=== PATIENT | male | born 1940 | race Caucasian/White ===

== ENCOUNTER 2020-01-04 14:40 | Inpatient (IN) | payer MEDICARE ==
[2020-01-04] MEDS ORDERED: fentaNYL (PF) 50 MCG/ML 2 ML AMP IVP STA (14:45)
[2020-01-04] MEDS ORDERED: DILTIAZEM 125 MG in SODIUM CHLORIDE 0.9% 100 ML IV SCH (14:45)
[2020-01-04] MEDS ORDERED: SODIUM CHLORIDE 0.9% 500 ML 500 ML IV STA (14:45)
[2020-01-04] MEDS ORDERED: SODIUM CHLORIDE 0.9% 1,000 ML IV STA ×2 (14:45)
[2020-01-04] MEDS ORDERED: ADENOSINE 3 MG/ML 2 ML VIAL IVP STA (14:45)
--- NOTE | 2020-01-04 14:46 | ED ---
Arrhythmia/Palpitations HPI - General Chief Complaint: Arrhythmia/Palpitations Stated Complaint: Tachycardia Time Seen by Provider: 01/04/20 14:45 Source: patient, EMS Mode of arrival: EMS Limitations: altered mental status - Related Data Allergies Allergy/AdvReac Type Severity Reaction Status Date / Time No Known Allergies Allergy Verified 01/04/20 14:48 Review of Systems ROS Statement: Those systems with pertinent positive or pertinent negative responses have been documented in the HPI. ROS Other: All systems not noted in ROS Statement are negative. Past Medical History Past Medical History: No Reported History History of Any Multi-Drug Resistant Organisms: None Reported Past Surgical History: No Surgical Hx Reported Smoking Status: Never smoker Past Alcohol Use History: None Reported Past Drug Use History: None Reported General Exam Limitations: altered mental status Course Vital Signs 01/04/20 01/04/20 01/04/20 14:41 14:48 14:55 Temperature 97.9 F Pulse Rate 247 H 236 H 232 H Respiratory 19 16 16 Rate Blood Pressure 128/104 111/97 66/52 O2 Sat by Pulse 95 95 Oximetry 01/04/20 01/04/20 01/04/20 14:58 15:08 15:11 Temperature Pulse Rate 235 H 231 H 67 Respiratory 18 16 18 Rate Blood Pressure 91/51 84/62 98/85 O2 Sat by Pulse 95 Oximetry 01/04/20 15:20 Temperature Pulse Rate 67 Respiratory 18 Rate Blood Pressure 125/73 O2 Sat by Pulse 95 Oximetry EKG Findings - EKG Comments: EKG Findings:: EKG shows ventricular tachycardia 247 QRS 144 QTC 458. Repeat after spontaneous cardioversion. EKG shows occasional paced of 78 RI 272 QRS 152 QTC 481 Medical Decision Making - Lab Data Result diagrams: 01/04/20 14:50 01/04/20 14:50 Lab Results 01/04/20 01/04/20 01/04/20 Range/Units 14:50 14:50 14:50 WBC 15.8 H (3.8-10.6) k/uL RBC 5.01 (4.30-5.90) m/uL Hgb 14.5 (13.0-17.5) gm/dL Hct 44.9 (39.0-53.0) % MCV 89.5 (80.0-100.0) fL MCH 28.9 (25.0-35.0) pg MCHC 32.3 (31.0-37.0) g/dL RDW 13.0 (11.5-15.5) % Plt Count 195 (150-450) k/uL Neutrophils % 80 % Lymphocytes % 11 % Monocytes % 7 % Eosinophils % 0 % Basophils % 0 % Neutrophils # 12.6 H (1.3-7.7) k/uL Lymphocytes # 1.8 (1.0-4.8) k/uL Monocytes # 1.1 H (0-1.0) k/uL Eosinophils # 0.0 (0-0.7) k/uL Basophils # 0.1 (0-0.2) k/uL PT 11.4 (9.0-12.0) sec INR 1.1 (<1.2) APTT 22.0 (22.0-30.0) sec Sodium 142 (137-145) mmol/L Potassium 4.8 (3.5-5.1) mmol/L Chloride 111 H (98-107) mmol/L Carbon Dioxide 19 L (22-30) mmol/L Anion Gap 12 mmol/L BUN 37 H (9-20) mg/dL Creatinine 1.54 H (0.66-1.25) mg/dL Est GFR (CKD-EPI)AfAm 49 (>60 ml/min/1.73 sqM) Est GFR (CKD-EPI)NonAf 42 (>60 ml/min/1.73 sqM) Glucose 190 H (74-99) mg/dL POC Glucose (mg/dL) (75-99) mg/dL POC Glu Firing Pin Gauger ID Plasma Lactic Acid Thaddeus (0.7-2.0) mmol/L Calcium 9.2 (8.4-10.2) mg/dL Phosphorus 4.5 (2.5-4.5) mg/dL Magnesium 2.1 (1.6-2.3) mg/dL Total Bilirubin 1.4 H (0.2-1.3) mg/dL AST 122 H (17-59) U/L ALT 95 H (4-49) U/L Alkaline Phosphatase 60 (38-126) U/L Creatine Kinase 640 H (55-170) U/L Troponin I (0.000-0.034) ng/mL Total Protein 6.5 (6.3-8.2) g/dL Albumin 4.1 (3.5-5.0) g/dL TSH 1.840 (0.465-4.680) mIU/L 01/04/20 01/04/20 01/04/20 Range/Units 14:50 14:50 14:53 WBC (3.8-10.6) k/uL RBC (4.30-5.90) m/uL Hgb (13.0-17.5) gm/dL Hct (39.0-53.0) % MCV (80.0-100.0) fL MCH (25.0-35.0) pg MCHC (31.0-37.0) g/dL RDW (11.5-15.5) % Plt Count (150-450) k/uL Neutrophils % % Lymphocytes % % Monocytes % % Eosinophils % % Basophils % % Neutrophils # (1.3-7.7) k/uL Lymphocytes # (1.0-4.8) k/uL Monocytes # (0-1.0) k/uL Eosinophils # (0-0.7) k/uL Basophils # (0-0.2) k/uL PT (9.0-12.0) sec INR (<1.2) APTT (22.0-30.0) sec Sodium (137-145) mmol/L Potassium (3.5-5.1) mmol/L Chloride (98-107) mmol/L Carbon Dioxide (22-30) mmol/L Anion Gap mmol/L BUN (9-20) mg/dL Creatinine (0.66-1.25) mg/dL Est GFR (CKD-EPI)AfAm (>60 ml/min/1.73 sqM) Est GFR (CKD-EPI)NonAf (>60 ml/min/1.73 sqM) Glucose (74-99) mg/dL POC Glucose (mg/dL) 204 H (75-99) mg/dL POC Glu Firing Pin Gauger ID Svacha, II, David Plasma Lactic Acid Thaddeus 4.5 H* (0.7-2.0) mmol/L Calcium (8.4-10.2) mg/dL Phosphorus (2.5-4.5) mg/dL Magnesium (1.6-2.3) mg/dL Total Bilirubin (0.2-1.3) mg/dL AST (17-59) U/L ALT (4-49) U/L Alkaline Phosphatase (38-126) U/L Creatine Kinase (55-170) U/L Troponin I <0.012 (0.000-0.034) ng/mL Total Protein (6.3-8.2) g/dL Albumin (3.5-5.0) g/dL TSH (0.465-4.680) mIU/L Disposition Clinical Impression: Tachycardia, Palpitations, Ventricular tachycardia Disposition: ADMITTED IP TO THIS HOSP Condition: Serious Is patient prescribed a controlled substance at d/c from ED?: No Referrals: None,Stated [Primary Care Provider] - 1-2 days
[2020-01-04] MEDS ORDERED: METOPROLOL TARTRATE 5 MG/5 ML VIAL IVP STA (14:47)
[2020-01-04] MEDS ORDERED: DEXTROSE 5% IN WATER 100 ML with AMIODARONE 150 MG IV ONE (14:49)
[2020-01-04 14:55] LABS: Glucose,Whole Blood 204 mg/dL (75-99)
[2020-01-04 14:59] LABS: Basophils # (A) 0.1 k/uL (0-0.2); Basophils % (A) 0 %; Eosinophils % (A) 0 %; HCT 44.9 % (39.0-53.0); HGB 14.5 gm/dL (13.0-17.5); Lymphocytes # (A) 1.8 k/uL (1.0-4.8); Lymphocytes % (A) 11 %; MCH 28.9 pg (25.0-35.0); MCHC 32.3 g/dL (31.0-37.0); MCV 89.5 fL (80.0-100.0); Mean Platelet Volume 8.5; Monocytes # (A) 1.1 k/uL (0-1.0); Monocytes % (A) 7 %; Neutrophils # (A) 12.6 k/uL (1.3-7.7); Neutrophils % (A) 80 %; Platelet Count 195 k/uL (150-450); RBC 5.01 m/uL (4.30-5.90); WBC 15.8 k/uL (3.8-10.6)
[2020-01-04 15:09] LABS: Albumin 4.1 g/dL (3.5-5.0); Calcium 9.2 mg/dL (8.4-10.2); Magnesium 2.1 mg/dL (1.6-2.3); Phosphorus 4.5 mg/dL (2.5-4.5); Potassium 4.8 mmol/L (3.5-5.1); Total Bilirubin 1.4 mg/dL (0.2-1.3); Total Protein 6.5 g/dL (6.3-8.2)
[2020-01-04 15:13] LABS: INR 1.1 (<1.2); Prothrombin Time 11.4 sec (9.0-12.0)
[2020-01-04] MEDS ORDERED: AMIODARONE 360 MG in DEXTROSE 5% IN WATER 200 ML IV ONE ×2 (15:14)
[2020-01-04] MEDS ORDERED: NITROGLYCERIN SL TABS 0.4 MG TAB SUBLINGUAL PRN (15:56)
[2020-01-04] MEDS ORDERED: MORPHINE SULFATE 4 MG/ML SYRINGE IV PRN (15:56)
--- NOTE | 2020-01-04 15:57 | XR ---
EXAMINATION TYPE: XR chest 1V portable DATE OF EXAM: 01/04/2020 COMPARISON: NONE HISTORY: This TECHNIQUE: Single frontal view of the chest is obtained. FINDINGS: There is no focal air space opacity, pleural effusion, or pneumothorax seen. The cardiac silhouette size is within normal limits. The osseous structures are intact. Left-sided cardiac shane ce. Arthropathy of the shoulders. Heart size normal. IMPRESSION: No acute process.
[2020-01-04] MEDS: SODIUM CHLORIDE 0.9% 1,000 ML IV SCH (16:42)
[2020-01-04] MEDS ORDERED: LORazepam 1 MG TAB PO PRN (18:37)
[2020-01-04] MEDS ORDERED: HYDROcodone/APAP 5-325MG 1 EACH TAB PO PRN (18:37)
--- NOTE | 2020-01-04 19:51 | US ---
EXAMINATION TYPE: US carotid duplex BILAT DATE OF EXAM: 01/04/2020 COMPARISON: NONE CLINICAL HISTORY: stroke. confusion, weakness EXAM MEASUREMENTS: RIGHT: Peak Systolic Velocity (PSV) cm/sec ----- Right CCA: 65.1 ----- Right ICA: 74.7 ----- Right ECA: 127.0 ICA/CCA ratio: 1.1 RIGHT: End Diastole cm/sec ----- Right CCA: 11.0 ----- Right ICA: 18.0 ----- Right ECA: 15.5 LEFT: Peak Systolic Velocity (PSV) cm/sec ----- Left CCA: 59.8 ----- Left ICA: 100.4 ----- Left ECA: 88.8 ICA/CCA ratio: 1.7 LEFT: End Diastole cm/sec ----- Left CCA: 11.0 ----- Left ICA: 28.0 ----- Left ECA: 11.1 VERTEBRALS (direction of flow): Right Vertebral: Antegrade Left Vertebral: Antegrade Rhythm: Normal Mild homogeneous plaque with no significant stenosis seen IMPRESSION: There is antegrade flow in the vertebral arteries. The images and measurements suggest l ess than 15% stenosis in both internal carotid arteries. Criteria for Assigning % of Stenosis / Diameter reduction (Estimation based on the indirect measurements of the internal carotid artery velocities (ICA PSV). 1. Normal (no stenosis)=ICA PSV < 125 cm/s: ratio < 2.0: ICA EDV<40 cm/s. 2. Less than 50% stenosis=ICA PSV < 125 cm/s: ratio < 2.0: ICA EDV<40 cm/s. 3. 50 to 69% stenosis=ICA PSV of 125 to 230 cm/s: ration 2.0 ? 4.0: ICA EDV 40-100 cm/s. 4. Greater than 70% stenosis to near occlusion= ICA PSV > 230 cm/s: ratio > 4.0: ICA EDV > 100 cm/s. 5. Near occlusion= ICA PSV velocities may be low or undetectable: variable ratio and ICA EDV. 6. Total occlusion=unable to detect flow.
--- NOTE | 2020-01-04 20:47 | HP ---
HISTORY AND PHYSICAL CHIEF COMPLAINTS: Change in mental status and ventricular tachycardia. HISTORY OF PRESENT ILLNESS: This 79-year-old gentleman with a past medical history of multiple medical problems, including hyperlipidemia, hypertension, history of dementia, history of possible cardiac arrhythmia, being followed by Dr. Delgado in the [place] area, apparently left home in a 3-neff. The patient apparently was planning to go to the [facility], but then the patient lost his way and was found in [place]. The patient was confused and the patient was seen by the EMT, who found that the patient was in ventricular tachycardia. The patient was taken to [facility]. Amiodarone drip was given and the patient converted to sinus tachycardia. The patient was admitted for further evaluation and treatment. Currently the patient is confused and unable to give a coherent history. The patient has significant dementia, though. There is no history of any fever, rigor or chills. No history of any other trauma at this time. PAST MEDICAL HISTORY: History of hypertension, hyperlipidemia, history of cardiac arrhythmia possibly, history of dementia. MEDICATIONS: 1. Pravachol 20 mg at bedtime. 2. Multivitamins 1 p.o. daily. 3. Vitamin D3 2000 daily. 4. Ecotrin 81 mg daily. 5. K-Dur 10 mEq p.o. daily. 6. Lopressor 25 mg b.i.d. 7. Namenda 10 mg p.o. b.i.d. 8. Eliquis 5 mg p.o. b.i.d. 9. Norvasc 10 mg p.o. daily. 10.Aricept 5 mg p.o. daily. ALLERGIES: NONE. FAMILY HISTORY: No history of heart disease or strokes in the family. SOCIAL HISTORY: No history of smoking. No history of alcohol intake. REVIEW OF SYSTEMS: ENT: No diminished hearing. No diminished vision. CARDIOVASCULAR SYSTEM: No angina, palpitations. RESPIRATORY SYSTEM: As mentioned earlier. GI: No nausea, vomiting. : No dysuria or retention. NERVOUS SYSTEM: No numbness, weakness. ALLERGY/IMMUNOLOGY: No asthma, hayfever. MUSCULOSKELETAL: As mentioned earlier. HEMATOLOGY/ONCOLOGY: No history of anemia. ENDOCRINE: No history of diabetes, hypothyroidism. CONSTITUTIONAL: As mentioned earlier. DERMATOLOGY: Negative. RHEUMATOLOGY: Negative. PSYCHIATRY: As mentioned earlier. PHYSICAL EXAMINATION: Patient alert and oriented x3. Pulse is 67, blood pressure 124/73, respiration 18, temperature normal, pulse ox 94% on 4 L. HEENT: Conjunctivae normal. Oral mucosa moist. NECK: No jugular venous distention. No carotid bruit. No lymph node enlargement. CARDIOVASCULAR SYSTEM: S1, S2 irregular. Tachycardia. RESPIRATORY SYSTEM: Breath sounds diminished at the bases. No rhonchi. No crackles. ABDOMEN: Soft, non-tender. LEGS: No edema. No swelling. NERVOUS SYSTEM: Higher functions as mentioned earlier. Moves all 4 limbs. No focal motor or sensory deficit. LYMPHATICS: No lymph node palpable in neck, axillae or groin. SKIN: No ulcer, rash, bleeding. JOINTS: No active deforming arthropathy. LABS: Labs at this time show WBC 15.8 and creatinine is 1.54. The previous creatinine value is not known. Lactic acid 4.5. Total bilirubin is 1.4, AST is 122, ALT is 95. Creatine kinase 640. ASSESSMENT: 1. Change in mental status, metabolic encephalopathy, acute on chronic, multifactorial. 2. Ventricular tachycardia, present on admission. Rule out acute coronary syndrome. 3. History of cardiac arrhythmia. 4. Increased creatinine with possible chronic kidney disease and acute on chronic renal failure. 5. Elevated plasma lactic acid, possibly secondary to dehydration. Rule out sepsis. 6. Elevated bilirubin and AST, ALT with mild hepatitis. 7. Elevated creatinine kinase with mild rhabdomyolysis. 8. Increased white count. 9. Hypertension. 10.Hyperlipidemia. 11.History of dementia. RECOMMENDATIONS AND DISCUSSION: In this 79-year-old gentleman who presented with multiple complex medical issues, we will monitor the patient closely, continue the current medications, continue with symptomatic treatment. Will initiate the home medications. IV fluids cautiously. Repeat labs. Cardiology consultation. I would also recommend a CT scan of the brain. The EKG revealed ventricular tachycardia initially which was rather monomorphic, and the EKG after admission showed normal sinus rhythm with possibly prolonged NJ interval with wide-complex QRS complexes which appears to be paced at this time. Overall prognosis is extremely guarded because of multiple complex medical conditions. Further recommendations to follow. There is no evidence of an infection at this time. The chest x-ray was reviewed personally by me and showed no acute process. I would recommend UA with micro and continue to follow up. Discussed with the patient's son and the daughter, who understand and agree. Further recommendations to follow. MMODL / IJN: [id number] /
--- NOTE | 2020-01-04 21:41 | CT ---
EXAMINATION TYPE: CT brain wo con DATE OF EXAM: 01/04/2020 COMPARISON: None HISTORY: Dementia CT DLP: 1123.4 mGycm Automated exposure control for dose reduction was used. There is moderate diffuse cerebral atrophy. There is no mass effect nor midline shift. There is no si gn of intracranial hemorrhage. There is some enlargement of the ventricles. The calvarium is intact. Skull base is intact. IMPRESSION: Cerebral atrophy. No acute intracranial abnormality.
[2020-01-04] MEDS: AMIODARONE 300 MG in DEXTROSE 5% IN WATER 250 ML IV SCH ×2 (22:01)
[2020-01-04] MEDS: APIXABAN 5 MG TAB PO SCH (22:03)
[2020-01-04] MEDS: PRAVASTATIN SODIUM 20 MG TAB PO SCH (22:03)
[2020-01-04] MEDS: METOPROLOL TARTRATE 25 MG TAB PO SCH (22:03)
[2020-01-04] MEDS: MEMANTINE 10 MG TAB PO SCH (22:03)
[2020-01-05] MEDS: SODIUM CHLORIDE 0.9% 1,000 ML IV SCH ×3 (02:19→21:01)
[2020-01-05 05:29] LABS: Appearance,Urine Clear (Clear); Bilirubin,Urine Negative (Negative); Blood,Urine Negative (Negative); Color,Urine Yellow; Glucose,Urine (UA) Negative (Negative); Ketones,Urine Trace (Negative); Leukocyte Esterase,Urine Negative (Negative); Nitrite,Urine Negative (Negative); Protein,Urine Trace (Negative); Specific Gravity,Urine 1.022 (1.001-1.035); Urobilinogen,Urine <2.0 mg/dL (<2.0)
[2020-01-05 05:39] LABS: Amphetamine Screen,Urine Not Detected (NotDetected); Barbiturate Screen,Urine Not Detected (NotDetected); Benzodiazepines Screen,Urine Not Detected (NotDetected); Cocaine Screen,Urine Not Detected (NotDetected); Methadone Screen, Urine Not Detected (NotDetected); Opiate Screen,Urine Not Detected (NotDetected); Oxycodone Screen, Urine Not Detected (NotDetected); Phencyclidine Screen,Urine Not Detected (NotDetected); Tricyclic Antidepressant,Urine Not Detected (NotDetected); Urn Cannabinoid Scrn Not Detected (NotDetected)
[2020-01-05] MEDS: PANTOPRAZOLE 40 MG TABLET PO SCH (06:41)
[2020-01-05 07:17] LABS: Basophils % (A) 0 %; Eosinophils % (A) 0 %; HGB 12.5 gm/dL (13.0-17.5); Lymphocytes # (A) 1.3 k/uL (1.0-4.8); Lymphocytes % (A) 16 %; MCH 29.8 pg (25.0-35.0); MCHC 32.9 g/dL (31.0-37.0); MCV 90.6 fL (80.0-100.0); Mean Platelet Volume 9.1; Monocytes # (A) 0.6 k/uL (0-1.0); Monocytes % (A) 7 %; Neutrophils # (A) 6.2 k/uL (1.3-7.7); Neutrophils % (A) 76 %; Platelet Count 139 k/uL (150-450); RBC 4.19 m/uL (4.30-5.90); RDW 12.9 % (11.5-15.5); WBC 8.2 k/uL (3.8-10.6)
[2020-01-05 07:30] LABS: Calcium 8.8 mg/dL (8.4-10.2); Potassium 4.6 mmol/L (3.5-5.1)
--- NOTE | 2020-01-05 08:59 | P.CRDCN ---
History of Present Illness Consult date: 01/05/20 Chief complaint: Change in mental status History of present illness: This is a 79-year-old gentleman with very advanced dementia we consulted to see for further evaluation off cardiac arrhythmia. The patient does have history of coronary artery disease as well as permanent pacemaker as well as hypertension and arrhythmia as well as advanced dementia. He was brought to the hospital by ambulance where he was found to be in monomorphic ventricular tachycardia and subsequently converted on his own in the emergency department. The patient is a very poor historian. He does not recall having any symptoms of chest pain or chest discomfort or shortness of breath or dizziness or syncope. He was found confused at [facility] where he was on his way to the [place]. After the patient was converted to normal sinus mechanism he was started on amiodarone IV. Since then he has been maintaining normal sinus mechanism. The initial EKG showed monomorphic ventricular tachycardia which was very fast. Subsequent EKG showed normal atrial sensed ventricular paced rhythm. The troponin is slightly elevated. He underwent a brain computed tomography scan which showed only chronic changes with atrophy without any acute abnormalities. Carotid duplex study also was performed and came in to be unremarkable. Past Medical History Past Medical History: Atrial Fibrillation, Cancer, Dementia, Eye Disorder, Hearing Disorder / Deafness, Hypertension, Memory Impairment, Prostate Disorder Additional Past Medical History / Comment(s): pacemaker, hx melanoma 20 years ago History of Any Multi-Drug Resistant Organisms: None Reported Past Surgical History: No Surgical Hx Reported, Heart Catheterization With Stent, Prostate Surgery, Tonsillectomy Additional Past Surgical History / Comment(s): stent right side of heart-dr monitoring left side Past Anesthesia/Blood Transfusion Reactions: No Reported Reaction Date of Last Stent Placement:: 6-7 years ago Smoking Status: Never smoker Past Alcohol Use History: None Reported Past Drug Use History: None Reported - Past Family History Father Family Medical History: Cancer Additional Family Medical History / Comment(s): of lung cancer Mother Family Medical History: Myocardial Infarction ([place]) Additional Family Medical History / Comment(s): from [place] Medications and Allergies Home Medications Medication Instructions Recorded Confirmed Type Apixaban [Eliquis] 5 mg PO BID 01/04/20 01/04/20 History Aspirin EC [Ecotrin Low Dose] 81 mg PO DAILY 01/04/20 01/04/20 History Cholecalciferol [Vitamin D3 (25 2,000 unit PO DAILY 01/04/20 01/04/20 History Mcg = 1000 Iu)] Donepezil HCl [Aricept] 5 mg PO DAILY 01/04/20 01/04/20 History Memantine [Namenda] 10 mg PO BID 01/04/20 01/04/20 History Metoprolol Tartrate [Lopressor] 25 mg PO BID 01/04/20 01/04/20 History Multivitamins, Thera [Multivitamin 1 tab PO DAILY 01/04/20 01/04/20 History (formulary)] Potassium Chloride ER [K-Dur 10] 10 meq PO DAILY 01/04/20 01/04/20 History Pravastatin Sodium [Pravachol] 20 mg PO HS 01/04/20 01/04/20 History amLODIPine [Norvasc] 10 mg PO DAILY 01/04/20 01/04/20 History Allergies Allergy/AdvReac Type Severity Reaction Status Date / Time No Known Allergies Allergy Verified 01/04/20 16:00 Physical Exam Vitals: Vital Signs Temp Pulse Pulse Resp BP BP Pulse Ox 01/05/20 04:00 60 19 125/60 95 01/05/20 00:00 98.2 F 60 18 116/66 96 01/04/20 20:00 98.1 F 63 18 146/67 98 01/04/20 17:48 66 18 131/76 96 01/04/20 16:46 97.7 F 70 70 18 124/70 158/63 96 01/04/20 15:20 67 18 125/73 95 01/04/20 15:11 67 18 98/85 01/04/20 15:08 231 H 16 84/62 95 01/04/20 14:58 235 H 18 91/51 01/04/20 14:55 232 H 16 66/52 01/04/20 14:48 236 H 16 111/97 95 01/04/20 14:41 97.9 F 247 H 19 128/104 95 Intake and Output 01/04/20 01/05/20 01/05/20 22:59 06:59 14:59 Intake Total 480 Output Total 400 300 Balance 80 -300 Intake: Oral 480 Output: Urine 400 300 Other: Voiding Method Toilet Toilet # Voids 1 3 Weight 82.871 kg 82 kg - Constitutional General appearance: no acute distress - Respiratory Respiratory: bilateral: diminished - Cardiovascular Rhythm: regular Heart sounds: normal: S1, S2 Results 01/05/20 06:26 01/05/20 06:26 Cardiac Enzymes 01/04/20 01/04/20 01/04/20 Range/Units 14:50 14:50 18:33 AST 122 H (17-59) U/L Troponin I <0.012 0.249 H* (0.000-0.034) ng/mL 01/04/20 Range/Units 22:14 AST (17-59) U/L Troponin I 0.624 H* (0.000-0.034) ng/mL Coagulation 01/04/20 Range/Units 14:50 PT 11.4 (9.0-12.0) sec APTT 22.0 (22.0-30.0) sec Lipids 01/05/20 Range/Units 06:26 Triglycerides 37 (<150) mg/dL Cholesterol 118 (<200) mg/dL HDL Cholesterol 39 L (40-60) mg/dL CBC 01/04/20 01/05/20 Range/Units 14:50 06:26 WBC 15.8 H 8.2 (3.8-10.6) k/uL RBC 5.01 4.19 L (4.30-5.90) m/uL Hgb 14.5 12.5 L (13.0-17.5) gm/dL Hct 44.9 38.0 L (39.0-53.0) % Plt Count 195 139 L (150-450) k/uL Comprehensive Metabolic Panel 01/04/20 01/05/20 Range/Units 14:50 06:26 Sodium 142 141 (137-145) mmol/L Potassium 4.8 4.6 (3.5-5.1) mmol/L Chloride 111 H 111 H (98-107) mmol/L Carbon Dioxide 19 L 27 (22-30) mmol/L BUN 37 H 31 H (9-20) mg/dL Creatinine 1.54 H 1.11 (0.66-1.25) mg/dL Glucose 190 H 106 H (74-99) mg/dL Calcium 9.2 8.8 (8.4-10.2) mg/dL AST 122 H (17-59) U/L ALT 95 H (4-49) U/L Alkaline Phosphatase 60 (38-126) U/L Total Protein 6.5 (6.3-8.2) g/dL Albumin 4.1 (3.5-5.0) g/dL Current Medications Generic Name Dose Route Start Last Admin Trade Name Freq PRN Reason Stop Dose Admin Hydrocodone Bitart/Acetaminophen 1 each 01/04/20 18:37 [place] 5-325 PO Q6HR PRN Pain Amlodipine Besylate 10 mg 01/05/20 09:00 Norvasc PO DAILY [facility] Apixaban 5 mg 01/04/20 21:00 01/04/20 22:03 Eliquis PO 5 mg BID HALI Administration Aspirin 325 mg 01/05/20 09:00 Aspirin PO DAILY [facility] Aspirin 81 mg 01/05/20 09:00 Aspirin PO DAILY [facility] Cholecalciferol 2,000 unit 01/05/20 09:00 Vitamin D3 (25 Mcg = 1000 Iu) PO DAILY [facility] Donepezil HCl 5 mg 01/05/20 09:00 Aricept PO DAILY [facility] Amiodarone HCl 300 mg/ 250 mls @ 25 mls/hr 01/04/20 21:15 01/04/20 22:01 Dextrose/Water IV 01/05/20 15:14 0.5 mg/min .Q10H HALI 25 mls/hr Administration Protocol 0.5 MG/MIN Sodium Chloride 1,000 mls @ 100 mls/hr 01/04/20 16:00 01/05/20 02:19 Saline 0.9% IV 100 mls/hr .Q10H HALI Administration Lorazepam 0.5 mg 01/04/20 18:37 Ativan PO Q8HR PRN Anxiety Memantine 10 mg 01/04/20 21:00 01/04/20 22:03 Namenda PO 10 mg BID HALI Administration Metoprolol Tartrate 25 mg 01/04/20 21:00 01/04/20 22:03 Lopressor PO 25 mg BID HALI Administration Morphine Sulfate 4 mg 01/04/20 15:56 Morphine Sulfate (Inj) IV Q4HR PRN Chest Pain Multivitamins 1 each 01/05/20 09:00 Theragran PO DAILY [facility] Nitroglycerin 0.4 mg 01/04/20 15:56 Nitrostat SUBLINGUAL Q5M PRN Chest Pain Pantoprazole Sodium 40 mg 01/05/20 07:30 01/05/20 06:41 Protonix PO 40 mg [id number] HALI Administration Potassium Chloride 10 meq 01/05/20 09:00 K-Dur 10 PO DAILY [facility]I Pravastatin Sodium 20 mg 01/04/20 21:00 01/04/20 22:03 Pravachol PO 20 mg HS HALI Administration Intake and Output 01/04/20 01/05/20 01/05/20 22:59 06:59 14:59 Intake Total 480 Output Total 400 300 Balance 80 -300 Intake: Oral 480 Output: Urine 400 300 Other: Voiding Method Toilet Toilet # Voids 1 3 Weight 82.871 kg 82 kg 01/05/20 06:26 01/05/20 06:26 Assessment and Plan Assessment: Assessment #1 change in mental status #2 ventricular tachycardia #3 history of permanent pacemaker #4 history of coronary artery disease #5 multiple comorbid conditions Plan #1 DC amiodarone IV and start the patient on amiodarone by mouth #2 obtain an echocardiogram was Doppler #3 monitor electrolytes including magnesium #4 interrogated the device #5 follow-up with the patient Thank you for allowing us participate in his care
[2020-01-05] MEDS: POTASSIUM CHLORIDE ER 10 MEQ TAB.ER.PRT PO SCH (09:43)
[2020-01-05] MEDS: amLODIPine 10 MG TAB PO SCH (09:43)
[2020-01-05] MEDS: APIXABAN 5 MG TAB PO SCH ×2 (09:43→21:06)
[2020-01-05] MEDS: ASPIRIN 325 MG TAB PO SCH (09:43)
[2020-01-05] MEDS: CHOLECALCIFEROL 1,000 UNIT TAB PO SCH (09:43)
[2020-01-05] MEDS: MEMANTINE 10 MG TAB PO SCH ×2 (09:43→21:05)
[2020-01-05] MEDS: DONEPEZIL 5 MG TAB PO SCH (09:44)
[2020-01-05] MEDS: METOPROLOL TARTRATE 25 MG TAB PO SCH ×2 (09:44→21:05)
[2020-01-05] MEDS: MULTIVITAMINS, THERA 1 EACH TAB PO SCH (09:44)
[2020-01-05] MEDS: ASPIRIN 81 MG PO SCH (09:44)
[2020-01-05] MEDS: AMIODARONE 300 MG in DEXTROSE 5% IN WATER 250 ML IV SCH ×2 (09:49)
[2020-01-05] MEDS: AMIODARONE 200 MG TAB PO SCH ×2 (10:35→21:06)
[2020-01-05 11:13] VITALS: BMI 24.5
[2020-01-05] MEDS: PRAVASTATIN SODIUM 20 MG TAB PO SCH (21:05)
--- NOTE | 2020-01-06 00:25 | P.PN ---
Subjective Progress Note Date: 01/05/20 Principal diagnosis: Ventricular tachycardia Mr. Berger is a 79-year-old male with advanced dementia, atrial fibrillation, hypertension, prostate disorder, history of melanoma 20 years back, pacemaker in place was brought in confused by EMS. The patient was confused and was found to be in ventricular tachycardia. Patient was started on amiodarone drip and converted into sinus rhythm. Patient has dementia and was not able to give much history. On reviewing the patient's vitals from this morning he has been afebrile, blood pressure 115/53, saturating at 96% on room air. Patient denies having any chest pain or palpitations. No cough or difficulty in breathing. No fever chills or rigors. No dysuria or hematuria. No abdominal pain nausea vomiting or diarr hea. Patient is wondering if he could go home today. On reviewing the patient's labs from this morning white count of 8.2, hemoglobin 12.5, platelets 139. Electrolytes within normal and patient's creatinine trending down from 1.54 to 1.11. Active Medications Hydrocodone Bitart/Acetaminophen ([place] 5-325) 1 each PO Q6HR PRN PRN Reason: Pain Amiodarone HCl (Cordarone) 400 mg PO BID [facility] Last Admin: 01/05/20 21:06 Dose: 400 mg Documented by: Amlodipine Besylate (Norvasc) 10 mg PO DAILY [facility] Last Admin: 01/05/20 09:43 Dose: 10 mg Documented by: Apixaban (Eliquis) 5 mg PO BID [facility] Last Admin: 01/05/20 21:06 Dose: 5 mg Documented by: Aspirin (Aspirin) 325 mg PO DAILY [facility] Last Admin: 01/05/20 09:43 Dose: 325 mg Documented by: Aspirin (Aspirin) 81 mg PO DAILY [facility] Last Admin: 01/05/20 09:44 Dose: Not Given Documented by: Cholecalciferol (Vitamin D3 (25 Mcg = 1000 Iu)) 2,000 unit PO DAILY [facility] Last Admin: 01/05/20 09:43 Dose: 2,000 unit Documented by: Donepezil HCl (Aricept) 5 mg PO DAILY [facility] Last Admin: 01/05/20 09:44 Dose: 5 mg Documented by: Sodium Chloride (Saline 0.9%) 1,000 mls @ 100 mls/hr IV .Q10H [facility] Last Admin: 01/05/20 21:01 Dose: Not Given Documented by: Lorazepam (Ativan) 0.5 mg PO Q8HR PRN PRN Reason: Anxiety Memantine (Namenda) 10 mg PO BID [facility] Last Admin: 01/05/20 21:05 Dose: 10 mg Documented by: Metoprolol Tartrate (Lopressor) 25 mg PO BID [facility] Last Admin: 01/05/20 21:05 Dose: 25 mg Documented by: Morphine Sulfate (Morphine Sulfate (Inj)) 4 mg IV Q4HR PRN PRN Reason: Chest Pain Multivitamins (Theragran) 1 each PO DAILY [facility] Last Admin: 01/05/20 09:44 Dose: 1 each Documented by: Nitroglycerin (Nitrostat) 0.4 mg SUBLINGUAL Q5M PRN PRN Reason: Chest Pain Pantoprazole Sodium (Protonix) 40 mg PO AC-BRKFST [facility] Last Admin: 01/05/20 06:41 Dose: 40 mg Documented by: Potassium Chloride (K-Dur 10) 10 meq PO DAILY [facility] Last Admin: 01/05/20 09:43 Dose: 10 meq Documented by: Pravastatin Sodium (Pravachol) 20 mg PO HS [facility] Last Admin: 01/05/20 21:05 Dose: 20 mg Documented by: Objective - Vital Signs Vital signs: Vital Signs Temp 98.4 F 01/05/20 12:00 Pulse 60 01/05/20 12:00 Resp 18 01/05/20 12:00 BP 115/57 01/05/20 12:00 Pulse Ox 97 01/05/20 12:00 Intake & Output 01/04/20 01/05/20 01/05/20 18:59 06:59 18:59 Intake Total 480 300 Output Total 400 300 Balance -400 180 300 Weight 82.871 kg 82 kg 82 kg Intake: Oral 480 300 Output: Urine 400 300 Other: Voiding Method Toilet # Voids 1 3 - Exam Gen: lying in bed, awake, alert and oriented 3, well-developed, well-nourished. HEENT: Head is atraumatic, normocephalic. Pupils equal, round. Sclerae is anicteric. NECK: Supple. No JVD. No lymphadenopathy. No thyromegaly. LUNGS: Breath sounds diminished at the bases with a few scattered rhonchi noted. HEART: Regular rate and rhythm. No murmur. ABDOMEN: Soft. Obese. Bowel sounds are present. No masses. No tenderness. EXTREMITIES: No calf tenderness. no lower extremity edema NEUROLOGICAL: Patient is awake, alert and oriented x3. No focal deficits - Labs CBC & Chem 7: 01/05/20 06:26 01/05/20 06:26 Labs: Abnormal Lab Results - Last 24 Hours (Table) 01/04/20 01/04/20 01/04/20 Range/Units 18:33 18:33 22:14 RBC (4.30-5.90) m/uL Hgb (13.0-17.5) gm/dL Hct (39.0-53.0) % Plt Count (150-450) k/uL Chloride (98-107) mmol/L BUN (9-20) mg/dL Glucose (74-99) mg/dL Plasma Lactic Acid Thaddeus 4.5 H* (0.7-2.0) mmol/L Troponin I 0.249 H* 0.624 H* (0.000-0.034) ng/mL HDL Cholesterol (40-60) mg/dL Urine Protein (Negative) Urine Ketones (Negative) 01/04/20 01/05/20 01/05/20 Range/Units 22:14 04:45 06:26 RBC (4.30-5.90) m/uL Hgb (13.0-17.5) gm/dL Hct (39.0-53.0) % Plt Count (150-450) k/uL Chloride 111 H (98-107) mmol/L BUN 31 H (9-20) mg/dL Glucose 106 H (74-99) mg/dL Plasma Lactic Acid Thaddeus 2.8 H* (0.7-2.0) mmol/L Troponin I (0.000-0.034) ng/mL HDL Cholesterol 39 L (40-60) mg/dL Urine Protein Trace H (Negative) Urine Ketones Trace H (Negative) 01/05/20 Range/Units 06:26 RBC 4.19 L (4.30-5.90) m/uL Hgb 12.5 L (13.0-17.5) gm/dL Hct 38.0 L (39.0-53.0) % Plt Count 139 L (150-450) k/uL Chloride (98-107) mmol/L BUN (9-20) mg/dL Glucose (74-99) mg/dL Plasma Lactic Acid Thaddeus (0.7-2.0) mmol/L Troponin I (0.000-0.034) ng/mL HDL Cholesterol (40-60) mg/dL Urine Protein (Negative) Urine Ketones (Negative) Assessment and Plan Assessment: ASSESSMENT Metabolic encephalopathy probably due to ventricular tachycardia Ventricular tachycardia converted to sinus rhythm Acute kidney injury CKD stage II Transaminitis Rhabdomyolysis Hypertension Hyperlipidemia History of dementia PLAN: Patient is currently in sinus rhythm, his IV amiodarone has been changed to p.o. amiodarone by cardiology today. On reviewing the labs patient's creatinine is trending down. Urine negative for nitrites or leukocyte esterase. Patient had CT of the brain that was showing cerebral atrophy no acute process he also had carotid artery Doppler showing less than 15% stenosis in both internal carotid arteries. Echocardiogram currently pending. Further recommendations to follow depending on the progress of the patient.
[2020-01-06] MEDS: PANTOPRAZOLE 40 MG TABLET PO SCH (06:34)
[2020-01-06 06:49] LABS: Calcium 8.4 mg/dL (8.4-10.2)
[2020-01-06 06:52] LABS: Basophils % (A) 0 %; Eosinophils # (A) 0.2 k/uL (0-0.7); Eosinophils % (A) 2 %; HCT 37.7 % (39.0-53.0); HGB 12.6 gm/dL (13.0-17.5); Lymphocytes % (A) 23 %; MCH 29.8 pg (25.0-35.0); MCHC 33.3 g/dL (31.0-37.0); MCV 89.4 fL (80.0-100.0); Mean Platelet Volume 9.4; Monocytes # (A) 0.6 k/uL (0-1.0); Monocytes % (A) 6 %; Neutrophils # (A) 5.9 k/uL (1.3-7.7); Neutrophils % (A) 67 %; Platelet Count 131 k/uL (150-450); RBC 4.22 m/uL (4.30-5.90); RDW 12.9 % (11.5-15.5); WBC 8.8 k/uL (3.8-10.6)
[2020-01-06] MEDS: METOPROLOL TARTRATE 25 MG TAB PO SCH ×2 (09:27→20:58)
[2020-01-06] MEDS: AMIODARONE 200 MG TAB PO SCH ×2 (09:28→20:57)
[2020-01-06] MEDS: MULTIVITAMINS, THERA 1 EACH TAB PO SCH (09:28)
[2020-01-06] MEDS: MEMANTINE 10 MG TAB PO SCH ×2 (09:28→20:58)
[2020-01-06] MEDS: SODIUM CHLORIDE 0.9% 1,000 ML IV SCH ×2 (09:28→20:08)
[2020-01-06] MEDS: amLODIPine 10 MG TAB PO SCH (09:28)
[2020-01-06] MEDS: ASPIRIN 325 MG TAB PO SCH (09:28)
[2020-01-06] MEDS: CHOLECALCIFEROL 1,000 UNIT TAB PO SCH (09:28)
[2020-01-06] MEDS: APIXABAN 5 MG TAB PO SCH ×2 (09:28→20:58)
[2020-01-06] MEDS: ASPIRIN 81 MG PO SCH (09:29)
[2020-01-06] MEDS: DONEPEZIL 5 MG TAB PO SCH (09:36)
[2020-01-06] MEDS: POTASSIUM CHLORIDE ER 10 MEQ TAB.ER.PRT PO SCH (09:36)
--- NOTE | 2020-01-06 09:37 | P.PN ---
Subjective Progress Note Date: 01/06/20 Principal diagnosis: Ventricular tachycardia This is a 79-year-old gentleman with very advanced dementia we consulted to see for further evaluation off cardiac arrhythmia. The patient does have history of coronary artery disease as well as permanent pacemaker as well as hypertension and arrhythmia as well as advanced dementia. He was brought to the hospital by ambulance where he was found to be in monomorphic ventricular tachycardia and subsequently converted on his own in the emergency department. The patient is a very poor historian. He does not recall having any symptoms of chest pain or chest discomfort or shortness of breath or dizziness or syncope. He was found confused at [facility] where he was on his way to the [facility]. After the patient was converted to normal sinus mechanism he was started on amiodarone IV. Since then he has been maintaining normal sinus mechanism. The initial EKG showed monomorphic ventricular tachycardia which was very fast. Subsequent EKG showed normal atrial sensed ventricular paced rhythm. The troponin is slightly elevated. He underwent a brain computed tomography scan which showed only chronic changes with atrophy without any acute abnormalities. Carotid duplex study also was performed and came in to be unremarkable. The patient was seen today January [id number]. He has been maintaining normal sinus mechanism. He is asymptomatic from a cardiovascular standpoint of view. He is on [facility]. Also he is on amiodarone by mouth. Objective - Vital Signs Vital signs: Vital Signs Temp 97.4 F L 01/06/20 03:53 Pulse 60 01/06/20 03:53 Resp 18 01/06/20 03:53 BP 137/71 01/06/20 03:53 Pulse Ox 96 01/06/20 03:53 Intake & Output 01/05/20 01/06/20 01/06/20 18:59 06:59 18:59 Intake Total 300 240 Output Total 0 Balance 300 240 Weight 82 kg 84.2 kg Intake: Oral 300 240 Output: Urine 0 Other: # Voids 1 - Constitutional General appearance: Present: no acute distress - Respiratory Respiratory: bilateral: CTA - Cardiovascular Rhythm: regular Heart sounds: normal: S1, S2 - Labs CBC & Chem 7: 01/06/20 05:59 01/06/20 05:58 Labs: Abnormal Lab Results - Last 24 Hours (Table) 01/06/20 01/06/20 Range/Units 05:58 05:59 RBC 4.22 L (4.30-5.90) m/uL Hgb 12.6 L (13.0-17.5) gm/dL Hct 37.7 L (39.0-53.0) % Plt Count 131 L (150-450) k/uL Chloride 109 H (98-107) mmol/L BUN 28 H (9-20) mg/dL Microbiology - Last 24 Hours (Table) 01/04/20 18:44 Blood Culture - Preliminary Blood No Growth after 24 hours Assessment and Plan Assessment: Assessment #1 change in mental status #2 ventricular tachycardia #3 history of permanent pacemaker #4 history of coronary artery disease #5 multiple comorbid conditions Plan #1 continue the current medical regimen #2 follow-up on the echocardiogram
--- NOTE | 2020-01-06 15:56 | ECHOF ---
Referral Reason:Stroke MEASUREMENTS -------- HEIGHT: 182.9 cm WEIGHT: 81.6 kg BP: 125/60 RVIDd: 4.8 cm (< 3.3) IVSd: 1.9 cm (0.6 - 1.1) LVIDd: 4.1 cm (3.9 - 5.3) LVPWd: 1.4 cm (0.6 - 1.1) IVSs: 1.9 cm LVIDs: 2.9 cm LVPWs: 1.8 cm LAESV Index (A-L): 31.05 ml/m Ao Diam: 4.6 cm (2.0 - 3.7) AV Cusp: 2.3 cm (1.5 - 2.6) MV E Charles: 1.09 m/s MV DecT: 249 ms MV A Charles: 1.12 m/s MV E/A Ratio: 0.97 AR PHT: 1063 ms RAP: 5.00 mmHg RVSP: 32.55 mmHg FINDINGS -------- This was a technically adequate study. The left ventricular size is normal. There is moderate concentric left ventricular hypertrophy. O verall left ventricular systolic function is low-normal with, an EF between 50 - 55 %. The diastoli c filling pattern is normal for the age of the patient {E/E'}. The right ventricle is moderate to severely enlarged. LA is midly dilated 29-33ml/m2. The right atrium is mildly enlarged. Electronic pacemaker lead seen in the right atrial cavity. Interatrial and interventricular septum intact. The aortic valve was not well visualized. There is mild aortic regurgitation. There is no evidenc e of aortic stenosis. Moderate mitral regurgitation is present. Mild tricuspid regurgitation present. There is borderline pulmonary artery hypertension. The righ t ventricular systolic pressure, as measured by Doppler, is 32.55mmHg. The aortic root size is normal. IVC Not well visulized. There is no pericardial effusion. CONCLUSIONS -------- 1. The left ventricular size is normal. 2. There is moderate concentric left ventricular hypertrophy. 3. Overall left ventricular systolic function is low-normal with, an EF between 50 - 55 %. 4. The right ventricle is moderate to severely enlarged. 5. LA is midly dilated 29-33ml/m2. 6. The right atrium is mildly enlarged. 7. There is mild aortic regurgitation. 8. Moderate mitral regurgitation is present. 9. Mild tricuspid regurgitation present. 10. There is borderline pulmonary artery hypertension. 11. The right ventricular systolic pressure, as measured by Doppler, is 32.55mmHg. ADMINISTRATIVE ASSISTANT RECEPTIONIST: [place] RDCS
--- NOTE | 2020-01-06 16:58 | P.PN ---
Subjective Progress Note Date: 01/06/20 Principal diagnosis: Ventricular tachycardia Mr. Berger is a 79-year-old male with advanced dementia, atrial fibrillation, hypertension, prostate disorder, history of melanoma 20 years back, pacemaker in place was brought in confused by EMS. The patient was confused and was found to be in ventricular tachycardia. Patient was started on amiodarone drip and converted into sinus rhythm. Patient has dementia and was not able to give much history. On 01/05/20 - On reviewing the patient's vitals from this morning he has been afebrile, blood pressure 115/53, saturating at 96% on room air. Patient denies having any chest pain or palpitations. No cough or difficulty in breathing. No fever chills or rigors. No dysuria or hematuria. No abdominal pain nausea vomiting or diarrhea. Patient is wondering if he could go home today. On reviewing the patient's labs from this morning white count of 8.2, hemoglobin 12.5, platelets 139. Electrolytes within normal and patient's creatinine trending down from 1.54 to 1.11. On 01/06/2020- no acute events reported by nursing staff. Patient has been pacing in his room, dressed up and ready to go home. Patient has dementia at baseline and states that he is being discharged home today. Patient's at bedside. Patient has been maintained in normal sinus rhythm. Is taking amiodarone by mouth. She denies having any chest pain, palpitations. No cough or difficulty in breathing. No abdominal pain nausea vomiting or diarrhea. No dysuria or hematuria. Vitals reviewed within normal limits. Labs done this [facility] show downtrending creatinine and it is 0.99 today. Active Medications Hydrocodone Bitart/Acetaminophen ([place] 5-325) 1 each PO Q6HR PRN PRN Reason: Pain Amiodarone HCl (Cordarone) 400 mg PO BID [facility] Last Admin: 01/06/20 09:28 Dose: 400 mg Documented by: Amlodipine Besylate (Norvasc) 10 mg PO DAILY [facility] Last Admin: 01/06/20 09:28 Dose: 10 mg Documented by: Apixaban (Eliquis) 5 mg PO BID [facility] Last Admin: 01/06/20 09:28 Dose: 5 mg Documented by: Aspirin (Aspirin) 81 mg PO DAILY [facility] Last Admin: 01/06/20 09:29 Dose: Not Given Documented by: Cholecalciferol (Vitamin D3 (25 Mcg = 1000 Iu)) 2,000 unit PO DAILY [facility] Last Admin: 01/06/20 09:28 Dose: 2,000 unit Documented by: Donepezil HCl (Aricept) 5 mg PO DAILY [facility] Last Admin: 01/06/20 09:36 Dose: 5 mg Documented by: Sodium Chloride (Saline 0.9%) 1,000 mls @ 100 mls/hr IV .Q10H [facility] Last Admin: 01/06/20 09:28 Dose: Not Given Documented by: Lorazepam (Ativan) 0.5 mg PO Q8HR PRN PRN Reason: Anxiety Memantine (Namenda) 10 mg PO BID [facility] Last Admin: 01/06/20 09:28 Dose: 10 mg Documented by: Metoprolol Tartrate (Lopressor) 25 mg PO BID [facility] Last Admin: 01/06/20 09:27 Dose: 25 mg Documented by: Morphine Sulfate (Morphine Sulfate (Inj)) 4 mg IV Q4HR PRN PRN Reason: Chest Pain Multivitamins (Theragran) 1 each PO DAILY [facility] Last Admin: 01/06/20 09:28 Dose: 1 each Documented by: Nitroglycerin (Nitrostat) 0.4 mg SUBLINGUAL Q5M PRN PRN Reason: Chest Pain Pantoprazole Sodium (Protonix) 40 mg PO AC-BRKFST [facility] Last Admin: 01/06/20 06:34 Dose: 40 mg Documented by: Potassium Chloride (K-Dur 10) 10 meq PO DAILY [facility] Last Admin: 01/06/20 09:36 Dose: 10 meq Documented by: Pravastatin Sodium (Pravachol) 20 mg PO [facility] Last Admin: 01/05/20 21:05 Dose: 20 mg Documented by: Objective - Vital Signs Vital signs: Vital Signs Temp 98.4 F 01/06/20 12:00 Pulse 61 01/06/20 12:00 Resp 18 01/06/20 12:00 BP 124/64 01/06/20 12:00 Pulse Ox 94 L 01/06/20 12:00 Intake & Output 01/05/20 01/06/20 01/06/20 18:59 06:59 18:59 Intake Total 300 240 118 Output Total 0 0 Balance 300 240 118 Weight 82 kg 84.2 kg Intake: Oral 300 240 118 Output: Urine 0 0 Other: # Voids 1 - Exam PHYSICAL EXAM Gen: Pacing in his room, ready to go home. well-developed, well-nourished. HEENT: Head is atraumatic, normocephalic. Pupils equal, round. Sclerae is anicteric. NECK: Supple. No JVD. No lymphadenopathy. No thyromegaly. LUNGS: Breath sounds diminished at the bases with a few scattered rhonchi noted. HEART: Regular rate and rhythm. No murmur. ABDOMEN: Soft. Obese. Bowel sounds are present. No masses. No tenderness. EXTREMITIES: No calf tenderness. no lower extremity edema NEUROLOGICAL: Patient is awake, alert and oriented x2-3. No focal deficits - Labs CBC & Chem 7: 01/06/20 05:59 01/06/20 05:58 Labs: Abnormal Lab Results - Last 24 Hours (Table) 01/06/20 01/06/20 Range/Units 05:58 05:59 RBC 4.22 L (4.30-5.90) m/uL Hgb 12.6 L (13.0-17.5) gm/dL Hct 37.7 L (39.0-53.0) % Plt Count 131 L (150-450) k/uL Chloride 109 H (98-107) mmol/L BUN 28 H (9-20) mg/dL Microbiology - Last 24 Hours (Table) 01/04/20 18:44 Blood Culture - Preliminary Blood No Growth after 24 hours Assessment and Plan Assessment: ASSESSMENT Metabolic encephalopathy probably due to ventricular tachycardia Ventricular tachycardia converted to sinus rhythm Acute kidney injury CKD stage II Transaminitis Rhabdomyolysis Hypertension Hyperlipidemia History of dementia PLAN: Patient is currently in sinus rhythm, his IV amiodarone has been changed to p.o. amiodarone by cardiology today. On reviewing the labs patient's creatinine is trending down. Urine negative for nitrites or leukocyte esterase. Patient had CT of the brain that was showing cerebral atrophy no acute process he also had carotid artery Doppler showing less than 15% stenosis in both internal carotid arteries. Echocardiogram currently pending. The treatment plan was discussed with his in detail. Further recommendations to follow depending on the progress of the patient. Anticipate discharge in the next 24 hours.
[2020-01-06] MEDS: PRAVASTATIN SODIUM 20 MG TAB PO SCH (20:58)
[2020-01-07 01:23] VITALS: RESP 18
[2020-01-07] MEDS: SODIUM CHLORIDE 0.9% 1,000 ML IV SCH (03:02)
[2020-01-07] MEDS: PANTOPRAZOLE 40 MG TABLET PO SCH (06:26)
[2020-01-07 07:12] LABS: Basophils % (A) 0 %; Eosinophils # (A) 0.3 k/uL (0-0.7); Eosinophils % (A) 3 %; HCT 41.4 % (39.0-53.0); HGB 14.1 gm/dL (13.0-17.5); Lymphocytes # (A) 1.6 k/uL (1.0-4.8); Lymphocytes % (A) 19 %; MCH 29.7 pg (25.0-35.0); MCV 87.5 fL (80.0-100.0); Monocytes # (A) 0.6 k/uL (0-1.0); Monocytes % (A) 7 %; Neutrophils # (A) 5.5 k/uL (1.3-7.7); Neutrophils % (A) 68 %; Platelet Count 150 k/uL (150-450); RBC 4.73 m/uL (4.30-5.90)
[2020-01-07 07:22] LABS: Calcium 8.8 mg/dL (8.4-10.2)
[2020-01-07] MEDS: MEMANTINE 10 MG TAB PO SCH (08:40)
[2020-01-07] MEDS: APIXABAN 5 MG TAB PO SCH (08:40)
[2020-01-07] MEDS: AMIODARONE 200 MG TAB PO SCH (08:40)
[2020-01-07] MEDS: MULTIVITAMINS, THERA 1 EACH TAB PO SCH (08:40)
[2020-01-07] MEDS: ASPIRIN 81 MG PO SCH (08:40)
[2020-01-07] MEDS: POTASSIUM CHLORIDE ER 10 MEQ TAB.ER.PRT PO SCH (08:40)
[2020-01-07] MEDS: METOPROLOL TARTRATE 25 MG TAB PO SCH (08:40)
[2020-01-07] MEDS: CHOLECALCIFEROL 1,000 UNIT TAB PO SCH (08:40)
[2020-01-07] MEDS: amLODIPine 10 MG TAB PO SCH (08:40)
[2020-01-07] MEDS: DONEPEZIL 5 MG TAB PO SCH (08:41)
--- NOTE | 2020-01-07 11:02 | P.PN ---
Subjective Progress Note Date: 01/07/20 CHIEF COMPLAINT: V-tach HISTORY OF PRESENT ILLNESS: Patient examined at the bedside. We are following the patient due to v-tach. Patient has not had further runs of v-tach. Echocardiogram completed revealing ejection fraction between 50 and 55%, moderate to severely enlarged right ventricle, mild aortic regurgitation, moderate mitral regurgitation, mild tricuspid regurgitation, and borderline pulmonary artery hypertension. Vital signs are stable. Patient denies shortness of breath. Denies chest pain. PHYSICAL EXAM: VITAL SIGNS: Reviewed. GENERAL: Well-developed in no acute distress. NECK: Supple. No JVD or thyromegaly LUNGS: Respirations even and unlabored. Lungs essentially clear to auscultation bilaterally. HEART: Regular rate and rhythm. S1 and S2 heard. EXTREMITIES: Normal range of motion. No clubbing or cyanosis. Peripheral pulses intact. No lower extremity edema ASSESSMENT: #1 change in mental status #2 ventricular tachycardia #3 history of permanent pacemaker #4 history of coronary artery disease #5 multiple comorbid conditions PLAN: -Continue Eliquis for history of afib -Continue oral amiodarone -Continue other cardiac medications including Norvasc, aspirin, metroprolol, and pravachol -Decrease Norvasc to 5 mg daily -Increase metoprolol to 50 mg twice a day -If patient's blood pressure remains stable will discontinue Norvasc tomorrow and add VIRGIE inhibitor -Continue with conservative management from a cardiac standpoint as patient is not a candidate for cardiac catheterization due to his advanced dementia Nurse practitioner note has been reviewed by physician. Signing provider agrees with the documented findings, assessment, and plan of care. Objective - Vital Signs Vital signs: Vital Signs Temp 97.5 F L 01/07/20 03:33 Pulse 60 01/07/20 03:33 Resp 18 01/07/20 03:33 BP 132/65 01/07/20 03:33 Pulse Ox 96 01/07/20 03:33 Intake & Output 01/06/20 01/07/20 01/07/20 18:59 06:59 18:59 Intake Total 118 240 Output Total 0 Balance 118 240 Weight 82.6 kg Intake: Oral 118 240 Output: Urine 0 Other: # Voids 2 - Labs CBC & Chem 7: 01/07/20 06:32 01/07/20 06:37 Labs: Microbiology - Last 24 Hours (Table) 01/04/20 18:44 Blood Culture - Preliminary Blood No Growth after 48 hours
[2020-01-07 13:27] VITALS: BP 131/76; PULSE 82; TEMP 97.6
--- NOTE | 2020-01-07 16:27 | P.DS ---
Providers Date of admission: 01/04/20 15:56 Expected date of discharge: 01/07/20 Attending physician: Bolivar Aguilar Consults: 01/04/20 15:56 Consult Physician Urgent Consulting Provider: John Au Consult Reason/Comments: known Do you want consulting provider notified?: Yes Primary care physician: Marisol Delgado [facility] Course: Mr. Berger is a 79-year-old gentleman with a past medical history of hypertension, hyperlipidemia, dementia, cardiac arrhythmia, being followed by Dr. Delgado, was found confused by EMT. He was found to have ventricular tachycardia and brought into [facility]. Patient has dementia, family mentions that he was riding a [address] and lost his way and that is where the EMT people from him. Patient was started on IV amiodarone drip and he converted into sinus tachycardia. Patient also had mildly elevated in troponins and 0.624. Device interrogation showed the he was in V tach for almost 3 hrs . Eventually the patient was changed from IV amiodarone to by mouth amiodarone. Cardiology has followed the patient throughout the stay. Patient had an echocardiogram done showing ejection fraction of 50-55%, with mild mitral valve regurgitation, mild aortic regurgitation. During his hospital stay his blood pressure medications were being adjusted by cardiology. Today the patient's and son at the bedside and wanted to take him home. I had a prolonged conversation with him regarding the changes in blood pressure medications cardiology is making. They did not want him to stay in the hospital any more. Patient's son was adamant that he wants his father to be discharged home. So cardiology was called, and there is okay with him being discharged on amiodarone. Vital Signs - 8 hr 01/07/20 01/07/20 12:00 15:19 Temperature 97.6 F Pulse Rate [ 82 82 Pulse Oximetery ] Respiratory 16 18 Rate Blood Pressure 131/76 [Left Arm] O2 Sat by Pulse 96 Oximetry PHYSICAL EXAM: VITAL SIGNS: Reviewed. GENERAL: elderly male no acute distress, dressed up to go home NECK: Supple. No JVD or thyromegaly LUNGS: Bilateral BS equal on both sides , No wheeze or crackles. HEART: Regular rate and rhythm. S1 and S2 heard. EXTREMITIES: No clubbing or cyanosis. No lower extremity edema DISCHARGE DIAGNOSIS Metabolic encephalopathy due to ventricular tachycardia Ventricular tachycardia converted to sinus rhythm Acute kidney injury CKD stage II Transaminitis Rhabdomyolysis Hypertension Hyperlipidemia History of dementia Follow-up: Patient is advised to follow up with his primary care physician in 1- 2 days. Also with his personal injury attorney in 1-2 days. His son mentions that his mother is calling them, to make an appointment with the personal injury attorney later today. More than 40 minutes spent towards the discharge of the patient, with more than 50 % of the time for counselling and coordination of care. Patient Condition at Discharge: Undetermined Plan - Discharge Summary Discharge Rx Participant: Yes New Discharge Prescriptions: New Amiodarone [Cordarone] 400 mg PO BID 30 Days #120 tab Atorvastatin [Lipitor] 40 mg PO DAILY 30 Days #30 tab Continue Pravastatin Sodium [Pravachol] 20 mg PO HS Multivitamins, Thera [Multivitamin (formulary)] 1 tab PO DAILY Cholecalciferol [Vitamin D3 (25 Mcg = 1000 Iu)] 2,000 unit PO DAILY Aspirin EC [Ecotrin Low Dose] 81 mg PO DAILY Potassium Chloride ER [K-Dur 10] 10 meq PO DAILY Metoprolol Tartrate [Lopressor] 25 mg PO BID Memantine [Namenda] 10 mg PO BID Apixaban [Eliquis] 5 mg PO BID amLODIPine [Norvasc] 10 mg PO DAILY Donepezil HCl [Aricept] 5 mg PO DAILY Discharge Medication List Apixaban [Eliquis] 5 mg PO BID 01/04/20 [History] Aspirin EC [Ecotrin Low Dose] 81 mg PO DAILY 01/04/20 [History] Cholecalciferol [Vitamin D3 (25 Mcg = 1000 Iu)] 2,000 unit PO DAILY 01/04/20 [History] Donepezil HCl [Aricept] 5 mg PO DAILY 01/04/20 [History] Memantine [Namenda] 10 mg PO BID 01/04/20 [History] Metoprolol Tartrate [Lopressor] 25 mg PO BID 01/04/20 [History] Multivitamins, Thera [Multivitamin (formulary)] 1 tab PO DAILY 01/04/20 [History] Potassium Chloride ER [K-Dur 10] 10 meq PO DAILY 01/04/20 [History] Pravastatin Sodium [Pravachol] 20 mg PO HS 01/04/20 [History] amLODIPine [Norvasc] 10 mg PO DAILY 01/04/20 [History] Amiodarone [Cordarone] 400 mg PO BID 30 Days #120 tab 01/07/20 [Rx] Atorvastatin [Lipitor] 40 mg PO DAILY 30 Days #30 tab 01/07/20 [Rx] Follow up Appointment(s)/Referral(s): None,Stated [REFERRING] - 1-2 days (follow up with your personal injury attorney as soon as possible) Patient Instructions/Handouts: Tachycardia (GEN) Discharge Disposition: HOME SELF-CARE
[2020-01-07] MEDS ORDERED: METOPROLOL TARTRATE 50 MG TAB PO SCH (21:00)
[2020-01-08] MEDS ORDERED: amLODIPine 5 MG TAB PO SCH (09:00)
[2020-01-08] MEDS ORDERED: ATORVASTATIN 40 MG TAB PO SCH (09:00)
== END 2020-01-07 16:37 | disposition home or self-care (01) | DRG 308 ==
LOC: EC 14:40 → 3SCARD 15:56
PROVIDERS: ADMIT Hospitalist; ATTEND Hospitalist
PROC: 4B02XSZ Measurement of Cardiac Pacemaker, External Approach (ICD-10-PCS; principal; 2020-01-05)
DX: I47.2 Ventricular tachycardia (principal); G93.41 Metabolic encephalopathy; M62.82 Rhabdomyolysis; N17.9 Acute kidney failure, unspecified; I12.9 Hypertensive chronic kidney disease with stage 1 through stage 4 chronic kidney disease, or unspecified chronic kidney disease; H91.90 Unspecified hearing loss, unspecified ear; I25.10 Atherosclerotic heart disease of native coronary artery without angina pectoris; N18.2 Chronic kidney disease, stage 2 (mild); E78.5 Hyperlipidemia, unspecified; F03.90 Unspecified dementia, unspecified severity, without behavioral disturbance, psychotic disturbance, mood disturbance, and anxiety; F41.9 Anxiety disorder, unspecified; K75.9 Inflammatory liver disease, unspecified; I48.91 Unspecified atrial fibrillation; I27.21 Secondary pulmonary arterial hypertension; I08.3 Combined rheumatic disorders of mitral, aortic and tricuspid valves; Z79.899 Other long term (current) drug therapy; Z79.82 Long term (current) use of aspirin; Z79.01 Long term (current) use of anticoagulants; Z95.5 Presence of coronary angioplasty implant and graft; Z90.89 Acquired absence of other organs; Z98.890 Other specified postprocedural states; Z85.820 Personal history of malignant melanoma of skin; Z82.49 Family history of ischemic heart disease and other diseases of the circulatory system; Z80.1 Family history of malignant neoplasm of trachea, bronchus and lung; Z95.0 Presence of cardiac pacemaker
CPT/HCPCS: 36415; 70450; 71045; 80048; 80053; 80061; 80306; 81003; 82550; 83605; 83735; 84100; 84443; 84484; 85025; 85610; 85730; 87040; 93005; 93306; 93880; 96365; 96366; 99285